=== PATIENT | female | born 2000 | race Caucasian/White ===

== ENCOUNTER 2022-02-12 08:09 | Emergency (ER) | payer MEDICAID ==
[~2022-02-12] VITALS: Ht 154.9 cm; Wt 62.2 kg
[2022-02-12 08:30] VITALS: BP 122/63
== END 2022-02-12 09:34 | disposition home or self-care (01) ==
LOC: ER 08:10
DX: S99.922A Unspecified injury of left foot, initial encounter (principal); M79.675 Pain in left toe(s); X58.XXXA Exposure to other specified factors, initial encounter; Y93.89 Activity, other specified; Y92.89 Other specified places as the place of occurrence of the external cause; Y99.8 Other external cause status
CPT/HCPCS: 73660; 99283